=== PATIENT | female | born 1955 | race Caucasian/White ===

== ENCOUNTER 2017-03-20 06:08 | Emergency (ER) | payer OTHER ==
[~2017-03-20] VITALS: Ht 149.9 cm; Wt 79.4 kg
[2017-03-20] MEDS ORDERED: KETOROLAC TROMETHAMINE 30 MG/ML INJ. ONE (06:43)
[2017-03-20] MEDS ORDERED: KETOROLAC TROMETHAMINE 30 MG/ML INJ. IV ONE (06:45)
[2017-03-20 06:57] LABS: POTASSIUM ISTAT 3.7 mmol/L (3.5-5.0)
--- NOTE | 2017-03-20 07:12 | EKG ---
[facility] [address] [place] [id number] Test Date: 2017-03-20 Test Time: 06:25:28 Pat Name: JAMAL STOVER Department: Room: Gender: F [place]: : 1955 Requested By: MAYDA HASKINS Order Number: [id number] Reading MD: Measurements Intervals [place] Rate: 62 P: 25 W[place]: 190 QRS: 3 QRSD: 86 T: 34 QT: 410 QTc: 418 Interpretive Statements SINUS RHYTHM QRS(T) CONTOUR ABNORMALITY CONSIDER ANTEROLATERAL MYOCARDIAL DAMAGE POSSIBLY ABNORMAL ECG RI6.01 No previous ECG available for comparison
--- NOTE | 2017-03-20 07:31 | RAD ---
Indication nausea. A single view of the chest was obtained. No prior imaging is available. The heart, pulmonary vessels and mediastinum appear normal. The lungs are clear. Is no pleural fluid or pneumothorax. The bony structures appear grossly intact. IMPRESSION: No acute finding apparent in the chest
--- NOTE | 2017-03-20 07:41 | PHYS DOC ---
Past Medical History Past Medical History: High Cholesterol, Hypertension Past Surgical History: Appendectomy, Cholecystectomy, Alcohol Use: None Drug Use: None Adult General Chief Complaint Chief Complaint: UPPER EXTREMITY PAIN HPI HPI Patient is a 61 year old female who presents with constant left arm pain, starts in shoulder, goes through the hand. Pain started 22 hours prior to arrival and has been constant since. Attempted "arthritis" medication x 1 without relief. No prior similar symptoms, no chest pain or SOB. No neck or jaw pain. Pain worsens with movement of the arm, had some pain also in armpit which has since resolved. Denies any h/o or risk factors of DVT. Pt did bump her outside of her wrist recently and had a bruise. She has not appreciated any swelling, pallor, or paraesthesias. Review of Systems Review of Systems Constitutional: Denies fever or chills [] Eyes: Denies change in visual acuity, redness, or eye pain [] HENT: Denies nasal congestion or sore throat [] Respiratory: Denies cough or shortness of breath [] Cardiovascular: No additional information not addressed in HPI [] GI: Denies abdominal pain,vomiting, bloody stools or diarrhea , reports mild nausea : Denies dysuria or hematuria [] Musculoskeletal: Denies back pain Integument: Denies rash or skin lesions [] Neurologic: Denies headache, focal weakness or sensory changes [] Current Medications Current Medications Current Medications Medications (Trade) Dose Ordered Sig/Katelynn Start Time Stop Time Status Last Admin Dose Admin Diazepam (Valium) 10 mg STK-MED ONCE 03/20/17 06:43 03/20/17 06:44 DC Ketorolac Tromethamine (Toradol) 30 mg STK-MED ONCE 03/20/17 06:43 03/20/17 06:44 DC Allergies Allergies Allergies Coded Allergies Type Severity Reaction Last Updated Verified No Known Drug Allergies 03/20/17 No Physical Exam Physical Exam Constitutional: Well developed, well nourished, no acute distress, non-toxic appearance. [] HENT: Normocephalic, atraumatic, bilateral external ears normal, oropharynx moist, no oral exudates, nose normal. [] Eyes: PERRLA, EOMI, conjunctiva normal, no discharge. [] Neck: Normal range of motion, no tenderness, supple, no stridor. [] Cardiovascular:Heart rate regular with regular rhythm, no murmur , no TTP Lungs & Thorax: Bilateral breath sounds clear to auscultation no wheeze or crackles Abdomen:, soft, no tenderness, no masses, no pulsatile masses. [] Skin: Warm, dry, no erythema, no rash. [] Back: No tenderness, no CVA tenderness. [] Extremities: LUE with ttp in anterior and posterior shoulder joint, full passive ROM that increases pt's pain, no appreciable edema, radial pulse 2 +, no erythema, no joint swelling, faint ulnar side wrist bruise, skin intact, cap refill <3 sec. Neurologic: Alert and oriented X 3, normal motor function, normal sensory function, no focal deficits noted. [] Psychologic:Anxious Current Patient Data Vital Signs Vital Signs Date Time Temp Pulse Resp B/P (MAP) Pulse Ox O2 Delivery O2 Flow Rate FiO2 03/20/17 08:20 51 20 155/72 (99) 97 Room Air 03/20/17 06:20 98.2 98.2 Lab Values Laboratory Tests Test 03/20/17 06:41 03/20/17 06:43 03/20/17 07:30 POC Troponin I 0.00 ng/ml (<0.08) POC Hemoglobin 13.3 g/dL (12-15) POC Hematocrit 39 % (36-40) POC Sodium 141 mmol/L (135-145) POC Potassium 3.7 mmol/L (3.5-5.0) POC Chloride 102 mmol/L (98-110) POC Total CO2 27 mmol/L (23-32) Anion Gap 16 mmol/L (6-14) H POC Blood Urea Nitrogen 21 mg/dL (8-26) POC Creatinine 0.8 mg/dL (0.5-1.4) Glucose Level 126 mg/dL (70-99) H POC Ionized Calcium (Umesh) 1.15 mmol/L (1.13-1.32) Urine Collection Type Unknown Urine Color Yellow Urine Clarity Clear Urine pH 6.0 Urine Specific [place] 1.025 Urine Protein Negative mg/dL (NEG-TRACE) Urine Glucose (UA) Negative mg/dL (NEG) Urine Ketones (Stick) Negative mg/dL (NEG) Urine Blood Small (NEG) Urine Nitrite Negative (NEG) Urine Bilirubin Negative (NEG) Urine Urobilinogen Dipstick 1.0 mg/dL (0.2 mg/dL) Urine Leukocyte Esterase Small (NEG) Urine RBC 3-5 /HPF (0-2) Urine WBC 5-10 /HPF (0-4) Urine Squamous Epithelial Cells Mod /LPF Urine Bacteria Many /HPF (0-FEW) Urine Mucus Mod /LPF Laboratory Tests 03/20/17 06:43 EKG EKG 62 bpm, sinus, normal axia, no ST elevation or depression, T waves nonischemic, interpreted by me.[] Radiology/Procedures Radiology/Procedures CXR: Indication nausea. A single view of the chest was obtained. No prior imaging is available. The heart, pulmonary vessels and mediastinum appear normal. The lungs are clear. Is no pleural fluid or pneumothorax. The bony structures appear grossly intact. IMPRESSION: No acute finding apparent in the chest Course & Med Decision Making Course & Med Decision Making Pertinent Labs and Imaging studies reviewed. (See chart for details) Pt's symptoms consistent with MSK cause, troponin 0, likely not ACS as pt's had sx >20 hours. Pt has reproducible worsening pain with movement. Given 30mg toradol and 2mg valium. CXR negative, no signs of DVT. Pt feeling much improved, okay to go home. Strict return precautions given, home care instructions for MSK pain. Pt to f/u with PCP regarding BP and symptoms, understands to return if worsening or new concerning symptoms. Dragon Disclaimer Dragon Disclaimer This electronic medical record was generated, in whole or in part, using a voice recognition dictation system. Departure Departure Impression: Primary Impression: Arm pain Disposition: HOME, SELF-CARE Condition: IMPROVED Referrals: ANDREW LLOYD MD (PCP) Scripts Ibuprofen (IBUPROFEN) 600 Mg Tablet 600 MG PO PRN Q6HRS Y for PAIN, #20 TAB Take with food or milk Prov: MAYDA HASKINS MD 03/20/17 MAYDA HASKINS MD Mar 20, 2017 07:41
[2017-03-20 07:52] LABS: BILIRUBIN,URINE NEGATIVE (NEG); GLUCOSE,URINE NEGATIVE (NEG); NITRITE,URINE NEGATIVE (NEG); PROTEIN,URINE NEGATIVE (NEG-TRACE)
[2017-03-20] MEDS ORDERED: IBUP-1007 PO (08:03)
[2017-03-20 08:09] LABS: SQUAMOUS EPITHELIAL CELL,UR MOD /LPF
[2017-03-20 08:10] LABS: BACTERIA,URINE MANY /HPF (0-FEW)
[2017-03-20 08:20] VITALS: BP 155/72
== END 2017-03-20 08:25 | disposition home or self-care (01) ==
LOC: ER 06:08
DX: M79.602 Pain in left arm (principal); I10 Essential (primary) hypertension; E78.00 Pure hypercholesterolemia, unspecified; Z90.49 Acquired absence of other specified parts of digestive tract
CPT/HCPCS: 71010; 80047; 81001; 84484; 93005; 96374; 96375; 99285; J1885; J3360